=== PATIENT | female | born 1995 ===

== ENCOUNTER 2020-12-29 18:29 | Emergency (ER) | payer SELFPAY ==
[2020-12-29 21:36] VITALS: BP 121/78
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
== END 2020-12-30 01:10 | disposition home or self-care (01) ==
LOC: ED 18:29
DX: S10.91XA Abrasion of unspecified part of neck, initial encounter (principal); M54.5 Low back pain; V87.7XXA Person injured in collision between other specified motor vehicles (traffic), initial encounter; Y93.89 Activity, other specified; Y92.488 Other paved roadways as the place of occurrence of the external cause; Y99.8 Other external cause status
CPT/HCPCS: 72100; 72125; 99284